=== PATIENT | male | born 1955 | race African-American/Black ===

== ENCOUNTER 2023-01-11 06:04 | Day surgery (SDC) | payer OTHER ==
[2023-01-08 10:47] VITALS: BMI 30.7
[2023-01-11] MEDS ORDERED: BUPIVACAINE HCL/EPINEPHRINE/PF 30 ML VIAL IJ ONE (07:14)
[2023-01-11] MEDS ORDERED: EPINEPHrine 1:1,000 1,000 MCG/ML ML ONE (07:15)
[2023-01-11] MEDS ORDERED: MIDAZOLAM HCL 2 MG/2 ML SINGLE DOSE VIAL ONE ×2 (07:36→09:16)
[2023-01-11] MEDS ORDERED: DEXAMETHASONE SOD PHOSPHATE/PF 10 MG/ML SDV ONE ×2 (07:37→09:16)
[2023-01-11] MEDS ORDERED: ROPIVACAINE HCL 0.5% 30ML VIAL ONE (07:37)
[2023-01-11] MEDS ORDERED: ONDANSETRON 4 MG/2 ML VIAL ONE ×2 (10:06→16:00)
[2023-01-11] MEDS ORDERED: DEXAMETHASONE SOD PHOSPHATE 4 MG/1 ML VIAL ONE (10:06)
[2023-01-11] MEDS ORDERED: ceFAZolin SODIUM 1 GM VIAL ONE (10:08)
[2023-01-11] MEDS ORDERED: PROPOFOL 20 ML ONE (10:58)
[2023-01-11] MEDS ORDERED: ACETAMINOPHEN INJECTION 100 ML IVPB ONE (16:00)
[2023-01-11] MEDS ORDERED: ACETAMINOPHEN 1000 MG/100 ML BAG IVPB ONE (17:07)
[2023-01-11] MEDS ORDERED: ONDANSETRON 4 MG/2 ML VIAL IVPUSH PRN (17:07)
[2023-01-11] MEDS ORDERED: oxyCODONE HCL 5 MG TABLET PO PRN ×3 (19:21→21:01)
[2023-01-11] MEDS ORDERED: ACETAMINOPHEN 500 MG TABLET (FP) PO PRN ×2 (19:22→19:26)
[2023-01-11 20:32] VITALS: RESP 18
[2023-01-12 06:34] VITALS: BP 108/67; PULSE 77; TEMP 98.1
== END 2023-01-12 09:02 | disposition home or self-care (01) ==
LOC: FASU 06:04 → FASUSAT 06:04 → FM/S 19:15 → FASUSAT 01-12 09:02
PROVIDERS: ATTEND Orthopaedic Surgery
PROC: 0LS44ZZ Reposition Left Upper Arm Tendon, Percutaneous Endoscopic Approach (ICD-10-PCS; 2023-01-11)
PROC: 0PBB4ZZ Excision of Left Clavicle, Percutaneous Endoscopic Approach (ICD-10-PCS; principal; 2023-01-11 10:26)
PROC: 0RBK4ZZ Excision of Left Shoulder Joint, Percutaneous Endoscopic Approach (ICD-10-PCS; 2023-01-11 10:26)
DX: M75.102 Unspecified rotator cuff tear or rupture of left shoulder, not specified as traumatic (principal); M19.012 Primary osteoarthritis, left shoulder; M75.22 Bicipital tendinitis, left shoulder; M65.812 Other synovitis and tenosynovitis, left shoulder; M75.52 Bursitis of left shoulder; M75.02 Adhesive capsulitis of left shoulder
CPT/HCPCS: 82962; 88304-TC; C1713